=== PATIENT | male | born 2000 | race Caucasian/White ===

== ENCOUNTER 2021-01-30 06:23 | Emergency (ER) | payer MEDICAID, SELFPAY ==
[2021-01-30 06:25] VITALS: BP 129/55; PULSE 83; RESP 18; TEMP 36.6; O2SAT 99; BMI 32.1
--- NOTE | 2021-01-30 06:44 | XR_ITS ---
PROCEDURE INFORMATION: Exam: XR Chest Exam date and time: 01/30/2021 6:44 AM Age: 20 years old Clinical indication: Cough; Additional info: Coughing TECHNIQUE: Imaging protocol: XR of the chest. Views: 2 views. COMPARISON: No relevant prior studies available. FINDINGS: Lungs: Unremarkable. No consolidation. Pleural spaces: Unremarkable. No pleural effusion. No pneumothorax. Heart/Mediastinum: Unremarkable. No cardiomegaly. Bones/joints: Unremarkable. IMPRESSION: No acute findings.
[2021-01-30 07:07] LABS: Coronavirus 19, PCR Not Detected (NotDetected); Influenza A, PCR Not Detected (NotDetected); Influenza B, PCR Not Detected (NotDetected)
[2021-01-30 07:19] LABS: Basophils # 0.1 K/mm3 (0-0.2); Basophils % 0.8 % (0.1-2.0); Eosinophils # 0.4 K/mm3 (0.0-0.4); Eosinophils % 5.2 % (0.1-12.0); Hematocrit 46.8 % (42.0-52.0); Hemoglobin 16.3 g/dL (14.1-18.0); Lymphocytes # 2.2 K/mm3 (0.7-4.5); Lymphocytes % 28.5 % (10-50); Mean Corpuscular HGB Conc 34.9 g/dL (31.8-35.4); Mean Corpuscular Hemoglobin 30.2 pg (27.0-31.2); Mean Corpuscular Volume 86.8 fl (80-94); Mean Platelet Volume 8.8 fl (7.4-10.4); Monocytes # 0.4 K/mm3 (0.1-1.0); Monocytes % 5.7 % (1.7-9.3); Neutrophils # 4.7 K/mm3 (1.8-7.8); Neutrophils % 59.7 % (37.0-80.0); Platelet Count 265 K/mm3 (142-424); Red Blood Count 5.39 M/mm3 (4.60-6.20); Red Cell Distribution Width 13.5 % (11.5-17.5); White Blood Count 7.8 K/mm3 (4.8-10.8)
[2021-01-30 07:35] LABS: Alanine Aminotransferase 41 U/L (12-78); Albumin Level 4.4 g/dl (3.5-5.0); Albumin/Globulin Ratio 1.4 (1.1-1.8); Alkaline Phosphatase 60 U/L (38-126); Anion Gap 15.4 mEq/L (5-15); Aspartate Amino Transferase 32 U/L (17-59); Bilirubin,Total 0.5 mg/dl (0.2-1.3); Blood Urea Nitrogen 16 mg/dl (9-20); Calcium 9.1 mg/dl (8.4-10.2); Carbon Dioxide 28 mmol/L (22.0-30.0); Chloride 103 mmol/L (98-107); Creatinine Clearance Estimated 232 mL/min (50-200); Estimated Glomerular Filt Rate 121 ml/min (>60); GFR (African American) 146 ML/MIN (>60); Globulin 3.1 g/dL (1.3-3.2); Glucose 106 mg/dl (74-100); Potassium 4.4 mmoL/L (3.5-5.1); Sodium 142 mmol/L (136-145); Total Protein,Serum 7.5 g/dl (6.3-8.2)
[2021-01-30 07:40] LABS: C-Reactive Protein 1.6 mg/L (0-4)
[2021-01-30 07:52] LABS: Erythrocyte Sedimentation Rate 6 mm/hr (0-15)
[2021-01-30 07:54] LABS: Procalcitonin 0.049 ng/mL (0.0-2.0)
--- NOTE | 2021-01-30 08:16 | [facility].EDGENADL ---
ED Disposition Clinical Impression: Viral infection Disposition: Home, Self-Care Condition on Discharge: Good Additional Instructions: [id number] Motrin/Tylenol as needed for aches and pains. Zofran for nausea. PCP in 1 to 2 days. Referrals: Provider,Referral, MD [Primary Care Provider] - Time of Disposition: 08: - Critical Care Critical Care Time: No Attestation: On 01/30/21, the high probability of a clinically significant, sudden or life threatening deterioration of the following system(s) required my full and direct attention, intervention and personal management. The time I documented below is in addition to time spent performing reported procedures but includes the following listed in this critical care notation. Medical Decision Making - Medical Records Medical records reviewed: Yes: I reviewed the patient's medical records. - Juancarlos Inquiry Pt receiving controlled substance: No Vital Signs: 01/30/21 06:25 Temperature 97.9 F Temperature Source Oral Pulse Rate [Right] 83 Respiratory Rate 18 Blood Pressure [Right Arm] 129/55 L Blood Pressure Mean [Right Arm] 79 02 Sat by Pulse Oximetry 99 - Lab Data Lab results reviewed: Yes: I reviewed the patient's lab results. Lab Results 01/30/21 06:30: SARS-CoV-2 (PCR) Not detected, Influenza A Untype (PCR) Not detected, Influenza Type B (PCR) Not detected 01/30/21 06:44: WBC 7.8, RBC 5.39, Hgb 16.3, Hct 46.8, MCV 86.8, MCH 30.2, MCHC 34.9, RDW 13.5, Plt Count 265, MPV 8.8, Neut % (Auto) 59.7, Lymph % (Auto) 28.5, [place] % (Auto) 5.7, Eos % (Auto) 5.2, Baso % (Auto) 0.8, Neut # (Auto) 4.7, Lymph # (Auto) 2.2, [place] # (Auto) 0.4, Eos # (Auto) 0.4, Baso # (Auto) 0.1, ESR 6 01/30/21 06:44: Sodium 142, Potassium 4.4, Chloride 103, Carbon Dioxide 28, Anion Gap 15.4 H, BUN 16, Creatinine 0.80, Estimated Creat Clear 232, Estimated GFR 121, Est GFR ( Amer) 146, Glucose 106 H, Calcium 9.1, Total Bilirubin 0.5, AST 32, ALT 41, Alkaline Phosphatase 60, C-Reactive Protein 1.6, Total Protein 7.5, Albumin 4.4, Globulin 3.1, Albumin/Globulin Ratio 1.4, Procalcitonin 0.049 Result diagrams: 01/30/21 06:44 01/30/21 06:44 Orders (Tests/Meds): ED MEDICATIONS Discontinued Medications Generic Name Dose Route Start Last Admin Trade Name Jacqueline PRN Reason Stop Dose Admin Dexamethasone Sodium Phosphate 10 mg 01/30/21 06:44 01/30/21 06:59 Dexamethasone 4mg/Ml 5ml Mdv IV 01/30/21 06:45 10 mg ONCE ONE Administration Sodium Chloride 1,000 mls @ 999 mls/hr 01/30/21 06:45 01/30/21 07:00 Sod Chlor 0.9% 1000ml Bag IV 01/30/21 07:45 999 mls/hr .Q1H1M NEEMA Administration Ketorolac Tromethamine 30 mg 01/30/21 06:44 01/30/21 07:00 Ketorolac 30mg/Ml Vial IV 01/30/21 06:45 30 mg ONCE ONE Administration Ondansetron HCl 4 mg 01/30/21 06:44 01/30/21 07:00 Ondansetron 4mg/2ml Vial IV 01/30/21 06:45 4 mg ONCE ONE Administration ORDERS Category Date Time Status XR chest 2V Stat Exams 01/30/21 06:44 Taken - Radiology Data #1 Image(s): Chest Image Reviewed: Yes I reviewed the patient's radiology image Preliminary Findings: Normal/NAD Medical Decision Narrative: 20yo M evaluated for cough congestion and now with nausea with vomiting. Patient no acute distress on initial evaluation. Laboratory studies are nonactionable. Chest x-ray is benign. Patient is appropriate stable for discharge home. General Adult HPI - General Chief complaint: Upper Respiratory Infection Stated complaint: vomiting,sore throat,cough, runny nose VASQUEZ Time Seen by Provider: 01/30/21 08:00 Mode of Arrival: Ambulatory Limitations: No Limitations Description of Symptoms (Recalled from ER Triage Doc. by RN): pt c/o n/v,coughing, VASQUEZ since this morning - History of Present Illness HPI narrative: 20yo M presents to the emergency department secondary to a couple days of cough and congestion worsened this morning to include vomiting. Patient den
[2021-01-30 08:59] VITALS: BP 124/60; PULSE 80; RESP 20; TEMP 36.6; O2SAT 99
== END 2021-01-30 09:00 | disposition home or self-care (01) ==
PROVIDERS: Emergency Medicine; Emergency Provider Family Medicine
DX: B34.9 Viral infection, unspecified (principal); Z20.822 Contact with and (suspected) exposure to COVID-19; F17.290 Nicotine dependence, other tobacco product, uncomplicated
CPT/HCPCS: 36415; 71046; 80053; 84145; 85025; 85651; 86140; 96365; 96375; 99283; C9803; J2405; U0003; U0005